=== PATIENT | female | born 1995 | race African-American/Black ===

== ENCOUNTER 2017-03-03 11:42 | Emergency (ER) | payer MEDICAID ==
[2017-03-03] VITALS (22 sets, daily range): BP systolic 50–135; BP diastolic 15–102
[~2017-03-03] VITALS: Ht 180.3 cm; Wt 137.0 kg
[2017-03-03 12:39] LABS: BASOPHILS % (AUTO) 0.6 % (0.0-2.0); HEMOGLOBIN 11.2 G/DL (12.0-16.0); LYMPHOCYTES % (AUTO) 40.8 % (20.0-45.0); MEAN CORPUSCULAR VOLUME 93 FL (80-99); MONOCYTES % (AUTO) 5.8 % (1.0-10.0); NEUTROPHILS % (AUTO) 51.8 % (45.0-75.0); PLATELET COUNT 350 K/UL (150-450); RED BLOOD COUNT 3.96 M/UL (4.20-5.40); RED CELL DISTRIBUTION WIDTH 13.2 % (11.6-14.8); WHITE BLOOD COUNT 8.6 K/UL (4.8-10.8)
[2017-03-03 12:50] LABS: ANION GAP 19 mmol/L (5-15); BLOOD UREA NITROGEN 15 mg/dL (7-18); CALCIUM 8.8 MG/DL (8.5-10.1); CARBON DIOXIDE 18 MMOL/L (21-32); CHLORIDE 102 MMOL/L (98-107); CREATININE 1.5 MG/DL (0.55-1.30); POTASSIUM 3.7 MMOL/L (3.5-5.1); SODIUM 139 MMOL/L (136-145)
[2017-03-03 13:00] LABS: ALANINE AMINOTRANSFERASE 38 U/L (12-78); ALBUMIN/GLOBULIN RATIO 0.6 (1.0-2.7); ALKALINE PHOSPHATASE 64 U/L (46-116); ASPARTATE AMINO TRANSFERASE 34 U/L (15-37); BILIRUBIN,TOTAL 0.5 MG/DL (0.2-1.0); CKMB 0.7 NG/ML (0.0-3.6); CREATINE KINASE 88 U/L (26-308)
[2017-03-03] MEDS ORDERED: Enoxaparin 150mg Inj SUBQ SCH (13:45)
--- NOTE | 2017-03-03 13:45 | Diagnostic Imaging Report ---
Indication: Dyspnea Comparison: None A single view chest radiograph was obtained. Findings: Cardiomediastinal appearance is within normal limits for age and for low lung volumes. Pulmonary vascularity is appropriate. The diaphragmatic contour is smooth and costophrenic angles are sharp. No pleural effusions are identified. The bones are unremarkable. Impression: No acute findings
--- NOTE | 2017-03-03 14:29 | Diagnostic Imaging Report ---
Indication: Chest pain Technique: Continuous helical transaxial imaging of the chest was obtained from the thoracic inlet to the upper abdomen during rapid intravenous contrast administration. Arterial phase of enhancement obtained. Coronal 2-D reformats were also obtained and maximum intensity projection images in multiple planes. Study obtained in a Siemens sensation [address] Automatic Exposure Control was utilized. Total Dose length Product (DLP): 1296.[address] Dose Index Volume (CTDIvol): 43.82 mGy Comparison: None Findings: Extensive central filling defects demonstrated at the bifurcations of the right and left pulmonary arteries extending into multiple lobar branches. Findings consistent with acute pulmonary embolus. The main pulmonary artery trunk is dilated. There is slight right ventricular dilatation as well. Some reflux contrast into the IVC noted. The lungs are clear. The visualized part of the upper abdomen is unremarkable. IMPRESSION: Acute central pulmonary emboli demonstrated bilaterally as discussed above. CT evidence of possible right heart strain. Please correlate clinically. Critical value communication. Findings were discussed via telephone with the emergency room physician Dr. Bosch at 2:25 PM, 03/03/[address] scanner at [facility] is accredited by the [employer] and the scans are performed using dose optimization techniques as appropriate to a performed exam including Automatic Exposure control.
[2017-03-03 14:30] LABS: APPEARANCE,URINE CLOUDY; BILIRUBIN, URINE 1+ (NEGATIVE); GLUCOSE, URINE (UA) 2+ (NEGATIVE); KETONES,URINE 1+ (NEGATIVE); LEUKOCYTE ESTERASE ,URINE 1+ (NEGATIVE); NITRITE,URINE NEGATIVE (NEGATIVE); PH,URINE 5 (4.5-8.0); PROTEIN,URINE 3+ (NEGATIVE); UROBILINOGEN,URINE 1 MG/DL (0.0-1.0)
[2017-03-03] MEDS ORDERED: Enoxaparin 120 mg inj SUBQ SCH (14:30)
[2017-03-03 14:36] LABS: COLOR,URINE YELLOW
[2017-03-03 14:47] LABS: INR 1.5 (0.9-1.1)
[2017-03-03] MEDS ORDERED: IBUPROFEN600 MG ORAL (15:14)
[2017-03-03] MEDS ORDERED: Mylanta II UD 30ml ORAL PRN (16:45)
[2017-03-03] MEDS ORDERED: Miralax 17gm pkt ORAL PRN (16:45)
[2017-03-03] MEDS ORDERED: Heparin 25,000u/D5W 500ml 500 ML IV SCH (16:45)
[2017-03-03] MEDS ORDERED: Zolpidem 5mg tab ORAL PRN (16:45)
[2017-03-03] MEDS ORDERED: LORazepam Inj 2mg/ml 1ml IV PRN (16:45)
[2017-03-03] MEDS ORDERED: Morphine Sulfate 2mg/ml Inj IVP PRN (16:45)
--- NOTE | 2017-03-03 17:07 | Emergency Room Report ---
History of Present Illness General Chief Complaint: Chest Pain Source: Patient, Family Member, EMS Present Illness HPI This patient is accompanied by her mother. She underwent a patellar tendon realignment 2 weeks previously. She states that this am around 8am she became lightheaded and dizzy and shortly thereafter she became sweaty and developed CP and shortness of breath. She c/o CP and SOB that continues. She denies recent illness. She denies cough or congestion. She denies f/c. She states that she walks about 2x per day over the past week but only in the house. She has no other complaints. Allergies: Coded Allergies: No Known Allergies (Unverified , 03/03/17) Patient History Past Medical History: none Past Surgical History: other - L. patella realignment 2 weeks ago. Social History: Denies: smoking, alcohol use, drug use Last Menstrual Period: on period Reviewed Nursing Documentation: PMH: Agreed, PSxH: Agreed Nursing Documentation-PMH Past Medical History: No History, Except For Review of Systems All Other Systems: negative except mentioned in HPI Physical Exam Vital Signs Date Time Temp Pulse Resp B/P (MAP) Pulse Ox O2 Delivery O2 Flow Rate FiO2 03/03/17 11:41 97.2 130 34 104/81 94 Room Air 03/03/17 12:05 99 Sp02 EP Interpretation: reviewed, normal General Appearance: no apparent distress, alert, GCS 15, non-toxic Head: normocephalic, atraumatic Eyes: bilateral eye normal inspection, bilateral eye PERRL ENT: hearing grossly normal, normal pharynx, no angioedema, normal voice Neck: full range of motion, supple/symm/no masses Respiratory: chest non-tender, lungs clear, normal breath sounds, no respiratory distress, no retraction, no accessory muscle use, speaking full sentences Cardiovascular #1: no edema, tachycardia Gastrointestinal: normal bowel sounds, non tender, soft, non-distended, no guarding, no rebound Rectal: deferred Musculoskeletal: back normal, other - LLE in knee immobilizer brace Neurologic: alert, oriented x3, responsive, motor strength/tone normal, sensory intact, speech normal Psychiatric: judgement/insight normal, memory normal, mood/affect normal, no suicidal/homicidal ideation Skin: normal color, no rash, warm/dry, well hydrated Medical Decision Making Diagnostic Impression: Primary Impression: Pulmonary embolism ER Course The patient is found to have bilateral central PE's. I had given Lovenox 1mg/ kg presumptively on arrival because of the classic presentation concerning for PE. Later in her ED course she was found to have central PE's. I had planned on admitting this patient. Just as I was leaving shift, the patient became hypotensive. The hypotension was fluid responsive. TPA was ordered and the patient was signed out to Dr. Bosch. Please see his note for final course and disposition. This patient is critically ill. This patient required complex medical decision- making, aggressive intervention, extensive laboratory workup and monitoring. Critical care time: 40 minutes. Laboratory Tests Test 03/03/17 12:10 03/03/17 13:28 03/03/17 14:25 White Blood Count 8.6 K/UL (4.8-10.8) Red Blood Count 3.96 M/UL (4.20-5.40) L Hemoglobin 11.2 G/DL (12.0-16.0) L Hematocrit 37.0 % (37.0-47.0) Mean Corpuscular Volume 93 FL (80-99) Mean Corpuscular Hemoglobin 28.3 PG (27.0-31.0) Mean Corpuscular Hemoglobin Concent 30.4 G/DL (32.0-36.0) L Red Cell Distribution Width 13.2 % (11.6-14.8) Platelet Count 350 K/UL (150-450) Mean Platelet Volume 6.0 FL (6.5-10.1) L Neutrophils (%) (Auto) 51.8 % (45.0-75.0) Lymphocytes (%) (Auto) 40.8 % (20.0-45.0) Monocytes (%) (Auto) 5.8 % (1.0-10.0) Eosinophils (%) (Auto) 1.0 % (0.0-3.0) Basophils (%) (Auto) 0.6 % (0.0-2.0) D-Dimer 30.34 mg/L FEU (0.00-0.49) H Sodium Level 139 MMOL/L (136-145) Potassium Level 3.7 MMOL/L (3.5-5.1) Chloride Level 102 MMOL/L (98-107) Carbon Dioxide Level 18 MMOL/L (21-32) L Anion Gap 19 mmol/L (5-15) H Blood Urea Nitrogen 15 mg/dL (7-18) Creatinine 1.5 MG/DL (0.55-1.30) H Estimate Glomerular Filtration Rate 53.2 mL/min (>60) Glucose Level 276 MG/DL (74-106) H Calcium Level 8.8 MG/DL (8.5-10.1) Total Bilirubin 0.5 MG/DL (0.2-1.0) Aspartate Amino Transferase (AST) 34 U/L (15-37) Alanine Aminotransferase (ALT) 38 U/L (12-78) Alkaline Phosphatase 64 U/L (46-116) Total Creatine Kinase 88 U/L (26-308) Creatine Kinase MB 0.7 NG/ML (0.0-3.6) Creatine Kinase MB Relative Index 0.7 Troponin I 0.241 ng/mL (0.000-0.056) Total Protein 7.9 G/DL (6.4-8.2) Albumin 3.0 G/DL (3.4-5.0) L Globulin 4.9 g/dL Albumin/Globulin Ratio 0.6 (1.0-2.7) L Urine Color Yellow Urine Appearance Cloudy Urine pH 5 (4.5-8.0) Urine Specific Proctor 1.030 (1.005-1.035) Urine Protein 3+ (NEGATIVE) H Urine Glucose (UA) 2+ (NEGATIVE) H Urine Ketones 1+ (NEGATIVE) H Urine Occult Blood 3+ (NEGATIVE) H Urine Nitrite Negative (NEGATIVE) Urine Bilirubin 1+ (NEGATIVE) H Urine Ictotest Negative Urine Urobilinogen 1 MG/DL (0.0-1.0) H Urine Leukocyte Esterase 1+ (NEGATIVE) H Urine RBC 5-10 /HPF (0 - 2) H Urine WBC 2-4 /HPF (0 - 2) Urine Squamous Epithelial Cells Moderate /LPF (NONE/OCC) H Urine Amorphous Sediment Many /LPF (NONE) H Urine Bacteria Few /HPF (NONE) Urine Hyaline Casts 0-2 /LPF (NONE) H Urine Fine Granular Casts 0-2 /LPF (NONE) H Urine HCG, Qualitative Negative Prothrombin Time 16.0 SEC (9.30-11.50) H Prothrombin Time INR 1.5 (0.9-1.1) H PTT 27 SEC (23-33) EKG Diagnostic Results Rate: tachycardiac Rhythm: other - S.tachycardia NSST ST Segments: other - NSST Rhythm Strip Diag. Results EP Interpretation: yes Rate: 130's Rhythm: no PVC's, no ectopy, other Other Impression S.tachycardia Chest X-Ray Diagnostic Results Chest X-Ray Diagnostic Results : Chest X-Ray Ordered: Yes # of Views/Limited/Complete: 1 View Indication: Chest Pain EP Interpretation: No Interpretation: no consolidation, no effusion, no pneumothorax, no acute cardiopulmonary disease Impression: No acute disease Electronically Signed by: Jon CT/MRI/US Diagnostic Results CT/MRI/US Diagnostic Results : Imaging Test Ordered: CTA chest Impression Findings: Extensive central filling defects demonstrated at the bifurcations of the right and left pulmonary arteries extending into multiple lobar branches. Findings consistent with acute pulmonary embolus. The main pulmonary artery trunk is dilated. There is slight right ventricular dilatation as well. Some reflux contrast into the IVC noted. The lungs are clear. The visualized part of the upper abdomen is unremarkable. IMPRESSION: Acute central pulmonary emboli demonstrated bilaterally as discussed above. CT evidence of possible right heart strain. Please correlate clinically. Last Vital Signs Date Time Temp Pulse Resp B/P (MAP) Pulse Ox O2 Delivery O2 Flow Rate FiO2 03/03/17 12:05 97.3 144 42 104/27 99 Room Air 03/03/17 12:05 99 Disposition: XFER SHT-TRM HOSP Condition: Critical Referrals: [facility],REFERRING (PCP) LEO NASH D.O. Mar 03, 2017 17:07
[2017-03-03] MEDS ORDERED: WATER STERILE IV ONE (17:30)
[2017-03-03] MEDS ORDERED: Alteplase 100mg Inj IVP ONE (17:30)
[2017-03-03] MEDS ORDERED: ALTEPLASE IV ONE (17:30)
[2017-03-03] MEDS ORDERED: Alteplase 100mg Inj ONE (17:41)
[2017-03-03] MEDS ORDERED: NS IV SCH (17:45)
[2017-03-03] MEDS ORDERED: ALTEPLASE IV SCH (17:45)
[2017-03-03] MEDS ORDERED: Lidocaine 1% 10mg/ml/Epi 0.005mg/ml 30ml vial INJ ONE (17:58)
[2017-03-03] MEDS ORDERED: LORazepam Inj 2mg/ml 1ml IV ONE (19:00)
[2017-03-03] MEDS ORDERED: Morphine Sulfate 4mg/ml Inj IVP ONE (19:00)
[2017-03-03] MEDS ORDERED: Morphine Sulfate 2mg/ml Inj IVP ONE (19:15)
[2017-03-03 20:19] LABS: INR 1.5 (0.9-1.1)
--- NOTE | 2017-03-03 21:45 | Consultation ---
DATE OF CONSULTATION: 03/03/2017 CARDIOLOGY CONSULTATION CONSULTING PHYSICIAN: Jamari Nieto M.D. REFERRING PHYSICIAN: Angela Denis M.D. REASON FOR REFERRAL: Hemodynamic instability in the facing of pulmonary embolism. HISTORY OF PRESENT ILLNESS: This is a very unfortunate 21-year-old female, who has had surgery on her knee approximately 7 to 10 days ago. Initially was immobile for a day or two according to her mom and subsequently started moving around. Yesterday, she did move around and today, when mom was trying to get her up to be moving around, she complained of having headache, dizzy, and then started complaining of chest pain, apparently almost passed out. Mom put her down. She apparently was foaming from her mouth and was shaking. Paramedics were summoned. The patient was brought to the emergency room at and workup was initiated here. CT pulmonary angiogram was performed. A large pulmonary embolism was noted with an RV strain. The patient subsequently became hypotensive, and thrombolytic therapies have been started. The case was discussed with the emergency room physician and with the help of expertise of [facility] pulmonary emboli staff, thrombolytic therapies were initiated. The patient has received a total of 50 mg with thrombolytic therapy. On my arrival, she remained hypotensive, blood pressure in the 80s and heart rate in the 130s. She initially thought she was feeling better, although she changed her mind subsequently. She still continuing to have the chest pain. I did perform a very limited sonos at bedside to see there was no pericardial effusion. The patient's RV appears to be on the limited views dilated. The left ventricle appears to be small and markus. IVC was not visualized. PAST MEDICAL HISTORY: The patient's past medical history is apparently unremarkable according to the patient's mom. ALLERGIES: There are no drug allergies. SOCIAL HISTORY: She does not smoke or drink alcoholic beverages. No drug use. REVIEW OF SYSTEMS: GASTROINTESTINAL: She has no vomiting. She did have some nausea earlier. PULMONARY: Some coughing and some shortness of breath are noted. CONSTITUTIONAL: No fever, chills, or night sweats. PHYSICAL EXAMINATION: GENERAL: Shows her to be a very morbidly obese young female and diaphoretic. NECK: Supple. I am unable to fully evaluate her neck. LUNGS: Appear to be clear to auscultation at least to the point that I was able to listen. CARDIAC: Regular rhythm. Tachycardic. ABDOMEN: Obese. Positive bowel sounds. EXTREMITIES: Left is in a splint. Right has no significant edema. NEUROLOGIC: She is responsive. LABORATORY DATA: Laboratory values show urinalysis is cloudy, 1+ bilirubin, 5 to 10 RBCs, 2 to 4 WBCs, and many amorphous. Urine HCG is negative for . Sodium 139, potassium 3.7, chloride 102, bicarb 18, BUN of 15, creatinine 1.1, and glucose of 276. Liver function tests are all normal so far. Troponin initially was 0.24, this is from 12 o'clock in the afternoon. Albumin 3. Globulin of 4.9. Coags, INR 1.5 and a PTT of 27. CT scan of the chest as mentioned shows acute central pulmonary embolism demonstrating bilaterally and CT evidence of possible RV strain. Electrocardiogram shows sinus tachycardia and some T-wave changes in the inferior leads. ASSESSMENT: 1. Hypotension secondary to large pulmonary embolism. 2. Central pulmonary embolism. 3. History of recent knee surgery. 4. Morbid obesity. 5. Tachycardia secondary to above. This patient has received thrombolytic therapy here in the emergency room, already 50 mg have been administered and another 50 mg will be ordered. The patient is hemodynamically unstable. I will try to contact [facility] to see if higher level of care can accept the patient as expertise for her treatment not available at this particular hospital. She remains hemodynamically unstable and is at risk of dying and I suspect possible transfer to a higher level of care may be more beneficial to her than risky. Jamari Nieto M.D. DR: DONTE JOB#: [id number] CC:
--- NOTE | 2017-03-03 22:01 | Emergency Room Report ---
History of Present Illness General Chief Complaint: Chest Pain Source: EMS Present Illness Allergies: Coded Allergies: No Known Allergies (Unverified , 03/03/17) Patient History Last Menstrual Period: on period Nursing Documentation-[facility] Past Medical History: No History, Except For Physical Exam Vital Signs Date Time Temp Pulse Resp B/P (MAP) Pulse Ox O2 Delivery O2 Flow Rate FiO2 03/03/17 11:41 97.2 130 34 104/81 94 Room Air 03/03/17 12:05 99 03/03/17 13:00 2.0 Procedures Critical Care Time Critical Care Time i. I feel this is a highly complex case requiring extensive working including EKG/Rhythm strip, Xray/CT/US, Blood/urine lab work, repeat exams while in ED, and administration of strong opiates/narcotics for pain control, admission to hospital or close patient follow up. Total time: 30 min bedside evaluation and treatment excludes procedures (EKG). Reason for critical care: Massive pulmonary embolism with RV strain. Hypotensive, chest pain Possible complications: hypotension, hypertension, ME, shock, arrhythmias, metabolic acidosis, end organ damage, respiratory failure. Interventions: Lovenox, TPA, central line, IV fluids, consultation with intensivists [facility], cardiology consultation Course: Patient documented have large central PE with RV strain. Given Lovenox initially. Patient became hypotensive and chest pain worsened. Unresponsive to IV fluids. Right femoral line placed. Patient was given TPA in discussion with PE team at [facility] and Dr Nieto (cardiology). Tachycardia improving. Blood pressure improving. Chest pain resolving. Patient requiring multiple boluses to maintain blood pressure. Discussed with PE team at [facility] and accept the patient. Transferred by ALS Consultations: nursing staff, EMS, family Performed by: Dr Bosch Tolerated well condition = critical j. because of unstable vital signs this patient had a condition that could potentially threaten life or limb. I feel this is a critical patient who required my full attention while patient was considered critical. Total Critical Care Time excluding procedures was greater than 35 minutes Central Line Central Line : Consent: Emergent Central Line Lumen: triple Maximal Sterile Barrier Tech: yes cap, yes mask, yes sterile gown, yes sterile gloves, yes large sterile sheet, yes hand hygiene, yes chlorhexidine prep Central Line Postion: femoral (R) Anesthesia: Lidocaine Complications: none Central Line Post Position: sutured, good blood return Attempts: One Patient Tolerated: Well Complications: None Medical Decision Making Diagnostic Impression: Primary Impression: Pulmonary embolism Qualified Codes: I26.09 - Other pulmonary embolism with acute cor pulmonale ER Course Patient was admitted for treatment of acute pulmonary embolism with RV strain. Patient was given Lovenox. Patient became hypotensive with chest pain increasing. She is now hemodynamically unstable. Right femoral line placed. TPA given - dosing discussed with PE team at [facility] Patient given 15 mg bolus initially. Given 35 mg over half an hour. Patient given additional 50 mg over one hour Patient states chest pain is improving. Tachycardia is slowly improving. patient became hypotensive at times but responded to IV fluids. Discussion of giving pressors but withheld for now Dr. Nieto at bedside; did bedside sonogram which showed RV strain but good left ventricular function. No signs of pericardial effusion or tamponade. Discussed case with PE team at [facility]. accepted the patient. Patient transported via ALS critical team Diagnoses-PE Transported to [facility] in critical condition Last Vital Signs Date Time Temp Pulse Resp B/P (MAP) Pulse Ox O2 Delivery O2 Flow Rate FiO2 03/03/17 21:49 127 27 108/71 97 Simple Mask 8.0 03/03/17 19:04 99 03/03/17 18:00 97.3 Status: improved Disposition: ER T-[facility] Condition: Critical Referrals: [facility],REFERRING (PCP) EUGENE BOSCH M.D. Mar 03, 2017 22:01
--- NOTE | 2017-03-04 13:24 | Cardiology Report ---
APPROVED REPORT EKG Measurement Heart [id number] Sinus tachycardia Abnormal ECG
== END 2017-03-03 21:55 | disposition short-term general hospital (02) ==
LOC: EDBD 11:42 → EMR 12:10 → EDBEDREQ 15:03 → EDBEDREQSVC 16:53 → EDBEDREQ 16:53 → EDBEDREQSVC 17:19 → EDBEDREQ 17:19 → EMR 21:55
DX: I26.99 Other pulmonary embolism without acute cor pulmonale (principal); I95.9 Hypotension, unspecified; E66.01 Morbid (severe) obesity due to excess calories; Z68.41 Body mass index [BMI] 40.0-44.9, adult; R00.0 Tachycardia, unspecified
CPT/HCPCS: 36415; 71045; 71275; 80053; 81003; 81025; 82550; 82553; 84484; 85025; 85379; 85610; 85730; 93005; 96361; 96365; 96366; 96372; 96375; 96376; 99291; J1650; J2270; J2405; J2997; Q9967; Z7502